=== PATIENT | male | born 1950 | race Caucasian/White ===

== ENCOUNTER 2018-12-24 08:06 | Day surgery (SDC) | payer MEDICARE, BC ==
[~2018-12-24] VITALS: Ht 185.4 cm; Wt 97.3 kg
[2018-12-24 08:32] LABS: CALC OSMOLALITY 284 mosm/kg (275-300); CALCIUM 8.6 mg/dL (8.5-10.1); CARBON DIOXIDE 27.5 mmol/L (21.0-32.0); CHLORIDE - SERUM 102 mmol/L (98-107); CREATININE - SERUM 0.9 mg/dL (0.6-1.3); GLUCOSE 287 mg/dL (74-106); POTASSIUM - SERUM 4.1 mmol/L (3.5-5.1); SODIUM 138 mmol/L (136-145); UREA NITROGEN 10 mg/dL (7-18); eGFR NON AFRICAN AMERICAN 89 mL/min (90-120)
[2018-12-24 09:49] LABS: HEMATOCRIT 49.4 % (42.0-54.0); HEMOGLOBIN 18.2 g/dL (13.5-17.5); MCH 32.9 pg (26.0-34.0); MCHC 36.8 g/dL (31.0-37.0); MCV 89.3 fL (80.0-100.0); MEAN PLATELET VOLUME 9.6 fL (7.4-10.4); RBC 5.53 10x6/uL (4.20-6.10); RDW 13.2 % (11.5-14.5); WBC 6.3 10x3/uL (4.8-10.8)
[2018-12-24] MEDS ORDERED: ZYLOPRIM100 MG PO (11:55)
[2018-12-24] MEDS ORDERED: GLUCOPHAGE500 MG PO (11:55)
[2018-12-24 12:09] VITALS: BP 134/63; Ht 185.4 cm; Wt 97.3 kg
--- NOTE | 2018-12-24 16:00 | NUR ---
PT DC INSTRUCTIONS REVIEWED AT THIS TIME, PT VERBALIZES UNDERSTANDING AND AGREES. PT IV REMOVED AT THIS TIME, INTACT, NO REDNESS OR SWELLING NOTED AT SITE.
--- NOTE | 2018-12-24 16:31 | NUR ---
PT LEAVING OPS SURGERY AT THIS TIME VIA WC, NO ACUTE DISTRESS NOTED.
--- NOTE | 2018-12-25 10:30 | OP ---
PATIENT NAME: ALVARO ORLANDO MEDICAL RECORD: [id number] :46 LOCATION:D[facility] ADMISSION DATE: SURGEON: GEMA DECKER MD DATE OF OPERATION: 12/24/2018 PREOPERATIVE DIAGNOSIS: Cecal polyp. POSTOPERATIVE DIAGNOSIS: Recurrent cecal polyp. PROCEDURES: 1. Total colonoscopy to cecum. 2. Endoscopic mucosal resection and polypectomy of cecal polyp. 3. Placement of 3 endoscopic clips for hemostasis. 4. Argon plasma coagulation therapy. SURGEON: Gema Decker MD EAR [employer]OLD LABORATORY TECHNICIAN: None. BLOOD LOSS: Minimal. DESCRIPTION OF PROCEDURE: The patient was conveyed to the endoscopy suite electively on 12/24/2018. IV sedation was induced by the anesthesia staff. The patient was placed in the Green position. A digital rectal examination was performed. The prostate was symmetric and enlarged. It was without nodules. A colonoscope was inserted through the anus. It was easily advanced to the cecum. The prep was fair. I irrigated and aspirated extensively. I noted the polyp in the cecum. It was right next to a tattoo. I advanced a sclerotherapy needle. Submucosal injection of epinephrine was performed. I then advanced a sclerotherapy needle again, and in 3 areas around the polyp, I injected Eleview submucosally. This gave good lift to the polyp. I advanced the snare. I was able snare the base of the polyp and perform a polypectomy with the snare. It snared off what appeared to be the entire polyp. I then took out the argon plasma event specialist food demonstrator, and utilizing the right colon setting in the forced mode, I treated the tissue around the polyp, which appeared to be normal. Due to small amount of bleeding, I then reinforced the area and obtained hemostasis with a row of endoscopic clips. There was no evidence of perforation. The polyp was then retrieved with an endoscopic retrieval net. The polyp was a 2.3-cm flat polyp. The pullback was greater than an 18-minute pullback. I will see the patient in my office in 2-3 weeks. The patient is going to be at risk for post-polypectomy syndrome, so will be dismissed home with Flagyl. TRANSINT:[id number] Voice Confirmation ID: [id number] DOCUMENT ID: [id number] OPERATIVE REPORT [id number] JOHANNYALVARO Kurt GEMA DECKER MD at 1030 CC: Becki POLANCO BRENDA [id number] DICTATION DATE: 12/24/18 1503 BIN WORKER: 12/24/18 1737 [facility] 12/24/18 [id number] [place] [address]
== END 2018-12-24 16:38 | disposition home or self-care (01) ==
LOC: D.OPS 08:06
PROVIDERS: Anesthesiology; ATTEND Surgery
DX: D12.0 Benign neoplasm of cecum (principal); Z01.812 Encounter for preprocedural laboratory examination